=== PATIENT | male | born 1955 | race Caucasian/White ===

== ENCOUNTER 2017-06-17 04:49 | Emergency (ER) | payer SELFPAY ==
[~2017-06-17] VITALS: Ht 180.3 cm; Wt 113.4 kg
[2017-06-17 04:50] VITALS: BP 112/81
--- NOTE | 2017-06-17 04:50 | NUR ---
PREBOOK BIB [facility] FOR PREBOOK PMH: HTN, REPORTS HAS NOT TAKEN HIS BP MEDS FOR A FEW DAYS PT DENIES N/V/D; SKIN IS PINK/WARM/DRY; AAOX4 WITH EVEN AND STEADY GAIT; LUNGS CLEAR BL; HR EVEN AND REGULAR; PT DENIES ANY FEVER, CP, SOB, OR COUGH AT THIS TIME; PATIENT STATES PAIN OF 0/10 AT THIS TIME; VSS; PATIENT POSITIONED FOR COMFORT; HOB ELEVATED; BEDRAILS UP X2; BED DOWN. ER MD MADE AWARE OF PT STATUS.
--- NOTE | 2017-06-17 05:11 | NUR ---
Patient discharged with v/s stable. Written and verbal after care instructions given and explained. Patient verbalized understanding. Police with in custody. All questions addressed prior to discharge. Advised to follow up with PMD.
== END 2017-06-17 05:11 | disposition home or self-care (01) ==
LOC: MED 04:49
DX: Z02.89 Encounter for other administrative examinations (principal); I10 Essential (primary) hypertension; Z98.890 Other specified postprocedural states; Z88.8 Allergy status to other drugs, medicaments and biological substances
CPT/HCPCS: 99283

== ENCOUNTER 2018-12-19 13:18 | Emergency (ER) | payer MEDICAID ==
[~2018-12-19] VITALS: Ht 177.8 cm; Wt 95.3 kg
--- NOTE | 2018-12-19 13:19 | NUR ---
PT BROUGHT IN BY IGLESIA ARANA TO [facility]
[2018-12-19 13:22] VITALS: BP 161/85
--- NOTE | 2018-12-19 13:26 | NUR ---
PT [facility] FOR PREBOOK. VSS AT THIS TIME. PT PLACED AT CHAIR C.
[2018-12-19 14:10] VITALS: BP 158/81
--- NOTE | 2018-12-19 14:10 | NUR ---
Patient discharged with v/s stable. Written and verbal after care instructions given and explained TO IGLESIA ARANA. PD verbalized understanding. ASSISTED BY Police with steady gait. All questions addressed prior to discharge. Advised to follow up with PMD AFTER RELEASED FROM INTERMEDIATE
== END 2018-12-19 14:10 ==
LOC: MED 13:18
DX: F10.10 Alcohol abuse, uncomplicated (principal); I10 Essential (primary) hypertension; Z88.1 Allergy status to other antibiotic agents; Z02.89 Encounter for other administrative examinations
CPT/HCPCS: 99283